=== PATIENT | female | born 1980 | race Caucasian/White ===

== ENCOUNTER 2023-06-30 10:20 | Day surgery (SDC) | payer MEDICAID ==
[~2023-06-30] VITALS: Ht 154.9 cm; Wt 81.6 kg
[2023-06-30] VITALS (7 sets, daily range): BP systolic 118–128; PULSE 61–69; RESP 16–18; TEMP 98.1–98.2; O2SAT 99
[2023-06-30 10:59] LABS: HCG,QUAL RESULT NEGATIVE (NEGATIVE)
[2023-06-30] MEDS ORDERED: FERR236T3 PO (11:25)
[2023-06-30] MEDS ORDERED: MAGN400T10 PO (11:25)
[2023-06-30] MEDS ORDERED: ACETAMINOPHEN I.V. 1000 MG 100 ML IV ONE (13:09)
[2023-06-30] MEDS ORDERED: LABETALOL 100 MG/ 20ML VIAL IVP PRN (14:00)
[2023-06-30] MEDS ORDERED: HYDROmorphone 1 MG/ML INJ. CARTRIDGE IVP PRN ×2 (14:00)
[2023-06-30] MEDS ORDERED: MEPERIDINE HCL/PF 25 MG/ML DISP.SYRIN IVP PRN (14:00)
[2023-06-30] MEDS ORDERED: hydrALAZINE HCL 20 MG/ML VIAL IVP PRN (14:00)
[2023-06-30] MEDS ORDERED: MIDAZOLAM HCL 2 MG/2 ML VIAL (VERSED) IVP PRN (14:00)
[2023-06-30] MEDS ORDERED: LR 1,000 ML IV SCH (14:00)
[2023-06-30] MEDS ORDERED: METOCLOPRAMIDE HCL 10 MG/2 ML VIAL IVP PRN (14:00)
[2023-06-30] MEDS ORDERED: MIDAZOLAM HCL 5 MG/ML VIAL (VERSED) IV ONE (15:50)
[2023-06-30] MEDS ORDERED: DESFLURANE 15 MIN GAS INH ONE (15:50)
[2023-06-30] MEDS ORDERED: ONDANSETRON HCL 4 MG/2 ML VIAL ONE (15:50)
[2023-06-30] MEDS ORDERED: DEXAMETHASONE SOD PHOSPHATE 4 MG/ML VIAL ONE (15:50)
[2023-06-30] MEDS ORDERED: LIDOCAINE/EPI 1% 1:100000 20 ML VIAL ONE (15:50)
[2023-06-30] MEDS ORDERED: NS IRRIG SOLN 1000 ML IR ONE (15:50)
[2023-06-30] MEDS ORDERED: PHENYLEPHRINE HCL 10 MG/ML VIAL (NEOSYNEPHRINE) ONE (15:50)
[2023-06-30] MEDS ORDERED: fentaNYL CITRATE/PF 100 MCG/2 ML AMP ONE (15:50)
[2023-06-30] MEDS ORDERED: SUGAMMADEX SODIUM 200 MG/2 ML VIAL IV ONE (15:50)
[2023-06-30] MEDS ORDERED: BACITRACIN 1 GM OINT TP ONE (15:50)
[2023-06-30] MEDS ORDERED: ROCURONIUM BROMIDE 10 MG/ML (ZEMURON) ONE (15:50)
[2023-06-30] MEDS ORDERED: PROPOFOL 200MG/ 20ML VIAL (DIPRIVAN) IV ONE (15:50)
[2023-06-30] MEDS ORDERED: LR 1,000 ML IV.SOLN IV ONE (15:50)
[2023-06-30] MEDS ORDERED: MORPHINE 2 MG/ML INJ. SYRINGE IVP PRN ×2 (16:15)
[2023-06-30] MEDS ORDERED: ONDANSETRON HCL 4 MG/2 ML VIAL IVP PRN ×2 (16:15)
[2023-06-30] MEDS ORDERED: HYDROcodone/ACETAMIN 5-325 MG TAB (NORCO/ VICODIN) PO PRN ×4 (16:15)
[2023-06-30] MEDS ORDERED: KCL 20 mEq in 0.45% NS 1000 mL 1,000 ML IV SCH (16:15)
[2023-06-30] MEDS ORDERED: 0.45% NACL 1,000 ML IV SCH ×2 (16:15)
[2023-06-30] MEDS ORDERED: DIPHENHYDRAMINE HCL 12.5 MG/5 ML UDC PO PRN (16:15)
[2023-06-30] MEDS: KCL 20 mEq in 0.45% NS 1000 mL 1,000 ML IV SCH ×2 (17:30→20:19)
[2023-06-30] MEDS ORDERED: MUPIROCIN 2% TOPICAL OINTMENT 22 GM TP SCH (21:00)
[2023-07-01 00:21] VITALS: BP_SYST 120; PULSE 65; RESP 16; TEMP 97.4; O2SAT 97
[2023-07-01 05:11] VITALS: BP_SYST 116; PULSE 64; RESP 16; TEMP 98; O2SAT 99
[2023-07-01 08:00] VITALS: BP_SYST 125; PULSE 69; RESP 20; TEMP 97.2; O2SAT 100; O2SAT 98
[2023-07-01] MEDS ORDERED: calcitrioL 0.25 MCG CAPSULE PO SCH (09:00)
[2023-07-01 12:00] VITALS: BP_SYST 118; PULSE 63; RESP 17; TEMP 97.8; O2SAT 97
[2023-07-01 15:37] VITALS: BP_SYST 143; PULSE 71; RESP 18; TEMP 98.7; O2SAT 95
== END 2023-07-01 16:10 | disposition home or self-care (01) ==
LOC: SDS 10:20 → SMU 10:24 → EDSTATUS 11:30 → SMU 17:13 → SDS 07-01 16:10
PROVIDERS: ATTEND Otolaryngology
DX: D44.0 Neoplasm of uncertain behavior of thyroid gland (principal); E66.9 Obesity, unspecified; N92.0 Excessive and frequent menstruation with regular cycle; H52.10 Myopia, unspecified eye; E66.3 Overweight; Z68.34 Body mass index [BMI] 34.0-34.9, adult
CPT/HCPCS: 60220; 84703; 88307; J3490; J1100; J2250; J2405; J2370; J2704; J3010; J7120; J0131; J3465; J3480